=== PATIENT | female | born 1980 | race Caucasian/White ===

== ENCOUNTER 2020-01-21 20:37 | Observation (INO) | payer BC, SELFPAY ==
[2020-01-21] VITALS (12 sets, daily range): BP systolic 99–161; BP diastolic 60–97; PULSE 80–119; RESP 12–26; TEMP 36.7; O2SAT 95–100
--- NOTE | 2020-01-21 20:56 | ED.OVERDOSE ---
HPI - Overdose General Chief Complaint: Psychiatric Symptoms Stated Complaint: unknown Time Seen by Provider: 01/21/20 20:53 History of Present Illness HPI Narrative: 39 yo female brought in from home after and intentional overdose. She reports that she took an unknown numbner of 100 mg sertraline tablets. She says maybe 20. She says she also took 1 of something else. She says that she was just trying to go to sleep, not tryig to hurt herself. She was actively vomiting at the time of my evaluation. She denies any other symptoms. Her reportedly said that she took 64 tablets. Related Data Home Medications Medication Instructions Recorded Confirmed aripiprazole 10 mg HS 01/21/20 01/22/20 sertraline 100 mg BID 01/21/20 01/22/20 Allergies Allergy/AdvReac Type Severity Reaction Status Date / Time No Known Allergies Allergy Verified 01/21/20 21:42 Review of Systems Review of Systems: All systems reviewed & are unremarkable except as noted in HPI and below Constitutional: Constitutional: Denies chills and Denies fever(s) Cardiovascular: Cardiovascular: Denies chest pain Respiratory: Respiratory: Denies dyspnea Gastrointestinal: Gastrointestinal: Denies abdominal pain, Reports nausea and Reports vomiting Musculoskeletal: Musculoskeletal: Denies back pain Neurologic: Denies dizziness and Denies weakness Psychiatric: Psychiatric: Reports depression PMFSH Past Medical History Medical History Anxiety and depression Family History Family History Mother Hypertension Social History Social History Smoking status: Never smoker Alcohol intake: current Drinks per week: 8 Substance use: never Substance use type: does not use Gender identity (if verbalized by the patient): Female Spiritual care concerns: No Exam Const: General: no acute distress and alert Nutritional Appearance: well nourished Orientation/consciousness: patient oriented x3 HENMT: Head: normal to inspection Course Vital Signs Vital signs: Vital Signs Temperature 36.7 C 01/21/20 20:47 Pulse Rate 119 H 01/21/20 20:47 Respiratory Rate 20 01/21/20 20:47 Blood Pressure 161/97 H 01/21/20 20:47 Pulse Oximetry 100 01/21/20 20:47 Temperature 37.1 C 01/22/20 00:15 Pulse Rate 78 01/22/20 02:00 Respiratory Rate 18 01/22/20 00:15 Blood Pressure 122/76 01/22/20 00:15 Pulse Oximetry 97 01/22/20 00:15 MDM - Overdose MDM Narrative Medical decision making narrative: Normal QRS, normal rate, no psychomotor agitation. I will admit for observation and medical clearance Medical Records Attestation: I reviewed the patient's medical records. Lab Data Attestation: I reviewed the patient's lab results. Result diagrams: 01/21/20 21:08 01/21/20 21:08 Labs: Lab Results 01/21/20 01/21/20 01/21/20 Range/Units 21:08 21:08 21:08 WBC 6.1 (4.5-10.0) K/mm3 RBC 4.75 (4.2-5.4) M/mm3 Hgb 14.6 (12.0-15.0) g/dL Hct 43.4 (37.0-47.0) % MCV 91.4 (80-100) fl MCH 30.7 (26-34) pg MCHC 33.6 (32-36) g/dl RDW 12.7 (11.5-14.5) % Plt Count 277 (150-375) k/mm3 MPV 9.5 (7.4-10.4) fl Immature Gran % (Auto) 0.2 (0-0.5) % Neut % (Auto) 43.2 L (45.5-73.1) % Lymph % (Auto) 46.8 H (18.3-44.2) % [place] % (Auto) 7.7 (2.6-8.5) % Eos % (Auto) 1.8 (0-4.4) % Baso % (Auto) 0.3 (0.2-1.2) % Lymph # (Auto) 2.84 (0.9-3.2) K/mm3 Grimes # (Auto) 0.5 (0.1-0.6) K/mm3 Eos # (Auto) 0.1 (0-0.3) K/mm3 Baso # (Auto) 0.0 (0.0-0.1) K/mm3 Abs Immat Gran (auto) 0.01 (0.00-0.031) K/mm3 Absolute Neuts (auto) 2.6 (1.3-6.7) K/mm3 Absolute Nucleated RBC 0.0 (0.0-0.012) K/mm3 Nucleated RBC % 0.0 (0.0-0.2) % Sodium 147 H (137-145) mmol/L Ded[place]
--- NOTE | 2020-01-21 21:03 | ECG_ITS ---
Measurements Intervals [place] Rate: 96 P: 66 [place]: 145 QRS: 78 QRSD: 98 T: 42 QT: 332 QTc: 420 Interpretive Statements SINUS RHYTHM NONSPECIFIC ST & T-WAVE ABNORMALITY- ANTEROLAT/INF LEADS BORDERLINE ECG Electronically Signed On 01-22-2020 6:55:28 CDT by Cheko Grimm D.O.
--- NOTE | 2020-01-21 21:03 | PC.NURSE ---
POISON CONTROL NOTIFIED AT 2055. PT TOOK 64 100MG TABS SERTRALINE AND AN UNKNOWN AMOUNT OF APRIPIPRAZOLE. PER POISON CONTROL- FOR SERTRALINE 4.5-8.5 HRS-PEAK AND 26 HRS HALF LIFE. FOR APRIPRPRAZOLE 3-5 HRS PEAK AND 3-6 DAYS HALF LIFE. NEED TO WATCH FOR MANGLE TENDER DEPRESSION, SEIZURES, WIDE QRS, LONG QT, HTN , HYPOTENSION, SEROTONIN SNYDROM FROM SERTRALINE. NEED TO WATCH FOR DYSTONIC REACTION, Neuroleptic malignant syndrome. THEY ARE FAXING INFORMATION TO US.
[2020-01-21 21:13] LABS: Basophils Percent Auto 0.3 % (0.2-1.2); Eosinophils Absolute Auto 0.1 K/mm3 (0-0.3); Eosinophils Percent Auto 1.8 % (0-4.4); Hematocrit 43.4 % (37.0-47.0); Hemoglobin 14.6 g/dL (12.0-15.0); Immature Granulocyte Absolute 0.01 K/mm3 (0.00-0.031); Immature Granulocyte Percent A 0.2 % (0-0.5); Lymphocytes Absolute Auto 2.84 K/mm3 (0.9-3.2); Lymphocytes Percent Auto 46.8 % (18.3-44.2); Mean Corpuscular HGB Conc 33.6 g/dl (32-36); Mean Corpuscular Hemoglobin 30.7 pg (26-34); Mean Corpuscular Volume 91.4 fl (80-100); Mean Platelet Volume 9.5 fl (7.4-10.4); Monocytes Absolute Auto 0.5 K/mm3 (0.1-0.6); Monocytes Percent Auto 7.7 % (2.6-8.5); Neutrophils Absolute Auto 2.6 K/mm3 (1.3-6.7); Neutrophils Percent Auto 43.2 % (45.5-73.1); Platelet Count Result 277 k/mm3 (150-375); Red Blood Count 4.75 M/mm3 (4.2-5.4); Red Cell Distribution Width 12.7 % (11.5-14.5); White Blood Count 6.1 K/mm3 (4.5-10.0)
[2020-01-21 21:28] LABS: Add Urine Microscopic? NO; Appearance Urine Clear (Clear); Bilirubin Urine Negative (Negative); Blood Urine Negative (Negative); Color Urine Colorless (Yellow); Glucose Urine UA Negative (Negative); Ketones Urine Negative (Negative); Leukocyte Esterase Ur Negative LEU/UL (Negative); Nitrate Urine Negative (Negative); Protein Urine Negative (Negative); Urobilinogen Urine Negative mg/dL (<2.0)
[2020-01-21 21:30] LABS: Acetaminophen < 10 ug/mL (10-30); Ethanol 237 mg/dL (<10); Salicylate < 1.0 mg/dL (2-20)
[2020-01-21 21:30] LABS: Specific Grav Ur 1.004 (1.001-1.035)
[2020-01-21 21:31] LABS: Alanine Aminotransferase 19 U/L (4-35); Albumin Level 5.1 g/dL (3.5-5.1); Alkaline Phosphatase 42 U/L (38-126); Anion Gap 17 mmol/L (8-16); Aspartate Amino Transferase 30 U/L (14-36); Bilirubin,Total 0.3 mg/dL (0.2-1.3); Blood Urea Nitrogen 11 mg/dL (7-17); Calcium 9.7 mg/dL (8.4-10.2); Carbon Dioxide 23 mmol/L (22-30); Chloride 107 mmol/L (98-107); Estimated Glomerular Filt Rate > 60; Glucose 96 mg/dL (65-105); Magnesium 2.2 mg/dL (1.6-2.3); Potassium 4.2 mmol/L (3.4-5.0); Sodium 147 mmol/L (137-145)
--- NOTE | 2020-01-21 21:36 | PC.NURSE ---
RAJESH Arthur spoke w/ Pt.'s and per he informed the Pt. She needed to get more help. The states the Pt. then went upstairs and told her to leave him alone. The then reported the Pt. came back downstairs to tell him she took pills and that she needed to go to the hospital. The Pt. then instructed her to bring the pill bottles with him to the hospital. The Pt.'s reported that he was unaware of any previous suicide attempts. also reports that Pt. has had suicidal thoughts in the past, but never any suicide attempts. Pt. has a hx of bipolar I, Depression, Alcoholism.
[2020-01-21 21:42] LABS: Amphetamine Screen Urine Negative (Negative); Barbiturate Screen Urine Negative (Negative); Benzodiazepines Screen Urine Negative (Negative); Cannabinoid Screen Urine Negative (Negative); Cocaine Screen Urine Negative (Negative); Methadone Screen Urine Negative (Negative); Opiate Screen Urine Negative (Negative); Phencyclidine Screen Urine Negative (Negative)
--- NOTE | 2020-01-21 22:49 | PC.NURSE ---
Spoke w/ poison control for updates. instructed to administer benzos for sz and dystonia. monitor for widening QRS
--- NOTE | 2020-01-21 23:29 | PM.IMHP ---
H&P: HPI History of Present Illness Date/Time: 01/21/20 23:29 Chief complaint: overdose Narrative: This is a pleasan 39 year old female with known depression who presented to the hospital for intentional overdose of questionable intent. The patient admits to ingesting greater than 10 tabs of 100 mg sertraline. She isn't exactly sure how many pills she took but ER provider reports to me that she likely took about 60 tabs when they checked her pill bottle. Her reported she took 64 tabs. She also admits to taking Abilify to the ER provider. It is unknown how much Abilify she took. Tonight she denies any nausea and vomiting although ER provider reported to me that the patient was actively vomiting when he saw her. She denies any suicidal ideation or homicidal ideation and denies any previous overdose. She denies any fever, chills, cough, shortness of breath, headache, nausea, abdominal pain, dysuria, diarrhea, rectal bleeding, hallucinations, or focal neurological symptoms. Review of Systems Review of Systems: All systems reviewed & are unremarkable except as noted in HPI and below PMFSH Past Medical History Medical History Anxiety and depression Family History Family History Mother Hypertension Social History Social History Smoking status: Never smoker Alcohol intake: current Drinks per week: 8 Substance use: never Substance use type: does not use Gender identity (if verbalized by the patient): Female Spiritual care concerns: No Comments No previous surgeries. Meds Home Medications and Allergies Home Medications Medication Instructions Recorded Confirmed Type aripiprazole 10 mg HS 01/21/20 01/22/20 History sertraline 100 mg BID 01/21/20 01/22/20 History Allergies Allergy/AdvReac Type Severity Reaction Status Date / Time No Known Allergies Allergy Verified 01/21/20 21:42 Vital Signs Vital Signs - 24 hr 01/21/20 20:47 01/21/20 21:50 01/21/20 22:00 Temperature 36.7 C Pulse Rate 119 H 97 86 Respiratory Rate 20 26 H 20 Blood Pressure 161/97 H Pulse Oximetry 100 01/21/20 22:03 01/21/20 22:28 01/21/20 22:30 Temperature Pulse Rate 97 89 90 Respiratory Rate 22 H 19 17 Blood Pressure 114/72 Pulse Oximetry 100 100 01/21/20 22:45 01/21/20 23:00 01/21/20 23:01 Temperature Pulse Rate 87 81 85 Respiratory Rate 19 16 17 Blood Pressure 99/60 L Pulse Oximetry 99 95 97 01/21/20 23:15 Temperature Pulse Rate 88 Respiratory Rate 15 Blood Pressure Pulse Oximetry 99 Exam Const: General: cooperative, alert and awake Nutritional Appearance: well nourished Orientation/consciousness: patient oriented x3 HENMT: Head: normal to inspection General nose exam: Normal external nose present Face and sinus: normal facial exam Mouth: Yes Normal oral and palatal mucosa present and Yes oropharynx normal Eyes: Pupils: Equal, round and reactive pupils present EOM: EOMs intact bilaterally Neck: Neck: supple and no JVD Thyroid: thyroid normal Lymphatic: lymphadenopathy not noted Resp: Effort & Inspection: normal respiratory effort Auscultation: clear to auscultation bilaterally Cardio: Rate: regular rate Rhythm: regular rhythm Heart sounds: no murmurs GI: Inspection: normal to inspection Auscultation: normal bowel sounds Skin: General skin exam: normal color and no rashes or lesions noted Neuro: General: patient oriented x3 Cranial nerves: Yes CN's II-XII intact bilaterally and Yes Equal, round and reactive pupils present Speech: normal speech Motor exam (neuro): 5/5 motor strength present throughout Sensory Exam: normal sensation Extrem: General: normal to inspection and no edema Psych: Mental Status: mental status grossly normal Affect: normal affect H&P: Results Labs Lab
[2020-01-22] VITALS (14 sets, daily range): BP systolic 109–131; BP diastolic 71–91; PULSE 78–93; RESP 18–99; TEMP 36.6–37.1; O2SAT 18–97; BMI 26.4
--- NOTE | 2020-01-22 00:36 | ADMGEN ---
This patient, Chrystal Garcia, was admitted to Intensive Care Unit-8 on 01/22/20 at 0010. Patient/family oriented to hospital policies and general routines including ID bracelet, bed and alarms, visiting hours, pain management, procedures, bathroom and other care routines, personal items, smoking policy, room service/diet, and visiting hours. Valuables list has been completed. Information on how to activate the Rapid Response Team has been discussed. Patient/Family are encouraged to report perceived risks to care and to ask questions if they do not understand what they are told or what they should do.
[2020-01-22] MEDS: LACTATED RINGERS 1,000 ML 125 ML IV CONT ×2 (00:40→08:46)
--- NOTE | 2020-01-22 01:53 | ECG_ITS ---
Measurements Intervals [place] Rate: 77 P: 63 [place]: 147 QRS: 82 QRSD: 88 T: 38 QT: 363 QTc: 413 Interpretive Statements SINUS RHYTHM BORDERLINE ST ABNORMALITY- INFERIOR LEADS BASELINE ARTIFACT- II, III, AVR, AVL, AVF BORDERLINE ECG Electronically Signed On 01-22-2020 12:28:14 CDT by Cheko Grimm D.O.
[2020-01-22 07:03] LABS: Glucose Point of Care 82 (65-105)
--- NOTE | 2020-01-22 07:53 | ECG_ITS ---
Measurements Intervals [place] Rate: 76 P: 55 [place]: 149 QRS: 81 QRSD: 89 T: 40 QT: 372 QTc: 419 Interpretive Statements SINUS RHYTHM NORMAL ECG Electronically Signed On 01-22-2020 12:28:20 CDT by Cheko Grimm D.O.
[2020-01-22 09:22] LABS: Anion Gap 6 mmol/L (8-16); Blood Urea Nitrogen 11 mg/dL (7-17); Calcium 8.8 mg/dL (8.4-10.2); Carbon Dioxide 29 mmol/L (22-30); Chloride 104 mmol/L (98-107); Estimated CRCL calculation 103 ml/min; Estimated Glomerular Filt Rate > 60; Ethanol < 10 mg/dL (<10); Glucose 85 mg/dL (65-105); Sodium 139 mmol/L (137-145)
[2020-01-22 09:23] LABS: Magnesium 1.7 mg/dL (1.6-2.3); Phosphorus 3.3 mg/dL (2.5-4.5)
[2020-01-22] MEDS: ACETAMINOPHEN 325 MG TABLET 650 MG PO (09:25)
[2020-01-22] MEDS: THIAMINE HCL 200 MG/2 ML VIAL 100 MG IV PUSH (09:28)
--- NOTE | 2020-01-22 09:53 | ECG_ITS ---
Measurements Intervals [place] Rate: 83 P: 61 [place]: 143 QRS: 84 QRSD: 93 T: 37 QT: 353 QTc: 416 Interpretive Statements SINUS RHYTHM BORDERLINE ST ABNORMALITY- INFERIOR LEADS BORDERLINE ECG Electronically Signed On 01-22-2020 11:44:23 CDT by Cheko Grimm D.O.
--- NOTE | 2020-01-22 11:46 | PC.NURSE ---
Spoke with Caitlyn MENA from poison control and patient has been cleared from their standpoint.
--- NOTE | 2020-01-22 11:53 | ECG_ITS ---
SINUS RHYTHM BORDERLINE ST-T WAVE ABNORMALITY- ANTEROLAT/INF LEADS BORDERLINE ECG Electronically Signed On 01-22-2020 13:03:35 CDT by Cheko Grimm D.O. COMPARED TO ECG 01/22/2020 10:02:23 NO SIGNIFICANT CHANGES MTDD
--- NOTE | 2020-01-22 14:06 | PM.IMPN ---
Progress Note: A&P Assessment and Plan (1) Intentional overdose of selective serotonin reuptake inhibitor (SSRI): Code(s): T43.222A - Poisoning by selective serotonin reuptake inhibitors, intentional self-harm, initial encounter Status: Acute Assessment and Plan: no adverse effects. EKG remains and change with no prolongation of QT interval and no rhythm is. patient is medically cleared for transfer to inpatient psych facility. Vital signs are all stable, electrolytes are normal, and alcohol level nondetectable now with normal EKG and no arrhythmias as stated (2) Alcohol intoxication: Qualifiers: Complication of substance-induced condition: with unspecified complication Qualified Code(s): F10.929 - Alcohol use, unspecified with intoxication, unspecified Code(s): F10.929 - Alcohol use, unspecified with intoxication, unspecified Status: Acute Assessment and Plan: The patient admits to drinking every other day. Repeat ETOH level today non detectable. LFTs normal so no long-term physical affects from alcohol to date (3) Suicidal ideation: Code(s): R45.851 - Suicidal ideations Status: Acute Assessment and Plan: patient denies any suicidal thoughts or plans. Gave the same history to crisis intervention but after crisis discuss the case with her , she has been having white mood swings with bouts of severe depression and trouble with the alcohol. She will be referred for inpatient psych evaluation (4) Anxiety and depression: Code(s): F41.9 - Anxiety disorder, unspecified; F32.9 - Major depressive disorder, single episode, unspecified Status: Chronic Assessment and Plan: Hold medications and resume with psychiatrist at inpatient facility Subjective Date/time seen: 01/22/20 14:06 Interval history: date of visit 01/21. 39-year-old white female with history of some alcohol abuse and depression who after drinking yesterday evening consumed unknown quantity sertraline and which she says was not attempt to get some sleep. She denies any suicidal attempts or ideations. Today she feels fine other than mild headache. Exam Narrative: Exam Narrative: Blood pressure 112/70 pulse is 92 saturating 96% on room air afebrile pupil equal reactive light sclera anicteric lungs clear CV regular rate rhythm no murmurs abdomen soft nontender extremities without edema good distal pulses neuro alert pleasant cooperative no focal deficits, oriented times 4, psych affect slightly blunted but pleasant and cooperative Objective Data Vital Signs Vital Signs: Vital Signs - 24 hr 01/21/20 20:47 01/21/20 21:00 01/21/20 21:50 Temperature 36.7 C Pulse Rate 119 H 97 Pulse Rate [Bilateral Pedal (Dorsalis Pedis)] Respiratory Rate 20 12 26 H Blood Pressure 161/97 H Pulse Oximetry 100 01/21/20 22:00 01/21/20 22:03 01/21/20 22:28 Temperature Pulse Rate 86 97 89 Pulse Rate [Bilateral Pedal (Dorsalis Pedis)] Respiratory Rate 20 22 H 19 Blood Pressure 114/72 Pulse Oximetry 100 01/21/20 22:30 01/21/20 22:45 01/21/20 23:00 Temperature Pulse Rate 90 87 81 Pulse Rate [Bilateral Pedal (Dorsalis Pedis)] Respiratory Rate 17 19 16 Blood Pressure Pulse Oximetry 100 99 95 01/21/20 23:01 01/21/20 23:15 01/21/20 23:55 Temperature Pulse Rate 85 88 80 Pulse Rate [Bilateral Pedal (Dorsalis Pedis)] Respiratory Rate 17 15 15 Blood Pressure 99/60 L 99/60 L Pulse Oximetry 97 99 95 01/22/20 00:10 01/22/20 00:15 01/22/20 00:30 Temperature 37.1 C Pulse Rate 88 78 81 Pulse Rate [Bilateral Pedal (Dorsalis Pedis)] Respiratory Rate 18 Blood Pressure 122/76 Pulse Oximetry 97 01/22/20 02:00 01/22/20 04:00 01/22/20 06:00 Temperature Pulse Rate 78 78 82 Pulse Rate [Bilateral Pedal (Dorsalis Pedis)] 87 Respiratory Rate Blood Pressure Pulse Oximetry 01/22/20 06:02 01/22/20 08
[2020-01-23 13:14] LABS: SARS-CoV-2 RNA PCR Negative
--- NOTE | 2020-01-24 10:33 | PM.TDS ---
Transfer Discharge Sum: Prov Provider Date of admission: 01/21/20 23:01 Primary care physician: Sander Whatley MD Admitting clinician: Franklin Doshi MD Consults: 01/22/20 Care Coordination Consult Routine Comment: Reason for Consult:: Crisis Intervention Care Coordination Consult Routine Comment: Reason for Consult:: Crisis Intervention DS: Admitting Diagnosis Admitting Diagnosis Admitting Diagnosis: overdose DS: Discharge Diagnosis Discharge Diagnosis (1) Intentional overdose of selective serotonin reuptake inhibitor (SSRI): Code(s): T43.222A - Poisoning by selective serotonin reuptake inhibitors, intentional self-harm, initial encounter Status: Acute Assessment and Plan: no adverse effects. EKG remains and change with no prolongation of QT interval and no arrhythmias. patient is medically cleared for transfer to inpatient psych facility. Vital signs are all stable, electrolytes are normal, and alcohol level nondetectable now with normal EKG and no arrhythmias as stated (2) Alcohol intoxication: Qualifiers: Complication of substance-induced condition: with unspecified complication Qualified Code(s): F10.929 - Alcohol use, unspecified with intoxication, unspecified Code(s): F10.929 - Alcohol use, unspecified with intoxication, unspecified Status: Acute Assessment and Plan: The patient admits to drinking every other day. Repeat ETOH level day of discharge was not detectable. LFTs normal so no long-term physical affects from alcohol to date (3) Suicidal ideation: Code(s): R45.851 - Suicidal ideations Status: Acute Assessment and Plan: patient denies any suicidal thoughts or plans. Gave the same history to crisis intervention but after crisis discuss the case with her , she has been having wide mood swings with bouts of severe depression and trouble with the alcohol. She will be referred for inpatient psych evaluation (4) Anxiety and depression: Code(s): F41.9 - Anxiety disorder, unspecified; F32.9 - Major depressive disorder, single episode, unspecified Status: Chronic Assessment and Plan: Hold medications and resume with psychiatrist at inpatient facility Transfer Discharge Sum: Med Medications Active and Home Medications: Home Medications aripiprazole 10 mg HS 01/21/20 [History Confirmed 01/22/20] sertraline 100 mg BID 01/21/20 [History Confirmed 01/22/20] Transfer Discharge Sum: Hosp Hospital Course Hospital course: Chrystal Garcia is a 39 year old female admitted to the hospital after alcohol consumption and unknown quantity of Zoloft tablets. she had emesis in the ER. She was monitored for over 24 hours for any signs of arrhythmia or QT prolongation and there were none. repeat alcohol level was nondetectable. she was seen by crisis intervention and after discussion with family it was decided that her best interest would be inpatient psych for further treatment and evaluation. she was medically stable and transferred to inpatient psych on the evening of the 12th Time Spent with Patient Time attestation: Total time spent providing and/or coordinating transfer services:35 minutes Exam Narrative: Exam Narrative: Condition on discharge blood pressure 132/90 pulse is 92 afebrile lungs clear CV regular rate rhythm abdomen soft nontender extremities without edema neuro alert cooperative no focal deficits and oriented x4 she was taking a normal diet up without assistance and stable to be transferred to inpatient psych DS: Data Data Completed and Pending Labs on day of discharge: Labs from last 24 hours 01/22/20 16:49 SARS-CoV-2 RNA (RT-PCR) Negative
== END 2020-01-22 19:50 ==
LOC: ANHED 22:37 → ANHICU 01-22 00:09
PROVIDERS: Admitting Provider Family Medicine; Emergency Provider Emergency Medicine; PCP Family Medicine; Visit Provider Internal Medicine
DX: T43.222A Poisoning by selective serotonin reuptake inhibitors, intentional self-harm, initial encounter (principal); F41.8 Other specified anxiety disorders; F10.929 Alcohol use, unspecified with intoxication, unspecified; R45.851 Suicidal ideations; Y90.7 Blood alcohol level of 200-239 mg/100 ml
CPT/HCPCS: 36415; 80048; 80053; 80307; 81003; 81025; 83735; 84100; 84443; 85025; 87635; 93005; 96361; 96374; 99285; A9270; C9803; G0378; J3411; J7120; U0003

== ENCOUNTER 2021-03-07 11:01 | Emergency (ER) | payer OTHER, BC, SELFPAY ==
--- NOTE | ~2021-03-07 | CT_ITS ---
EXAMINATION: CT facial bones wo con DATE: 03/07/2021 12:25 INDICATION: Facial pain and headache TECHNIQUE: Computed tomography (CT) of the facial bones and maxillofacial region was performed withou t intravenous contrast. The dose-length product (DLP) was 386.55 mGy-cm. Automated exposure control a nd iterative reconstruction technique were employed. COMPARISON: None. FINDINGS: No facial fracture is identified. Facial soft tissues are unremarkable. The globes and orbi ts are intact. The right maxillary sinus is hypoplastic and completely opacified. There is rightward deviation of the nasal septum. The right ostiomeatal complex is occluded. IMPRESSION: 1. No acute abnormality of the facial bones. 2. Right maxillary sinus disease. Reviewed, dictated and finalized at location A. CH TREATING ASSISTANT
--- NOTE | ~2021-03-07 | CT_ITS ---
EXAMINATION: CT brain wo con INDICATION: Headache COMPARISON: None TECHNIQUE: Standard unenhanced head CT. The dose-length product (DLP) was 605.33 mGy-cm. The mA was a djusted according to patient size. Iterative reconstruction technique was employed. FINDINGS: There is no intracranial hemorrhage, acute infarction, or abnormal mass lesion. The ventric les are normal. There is no abnormal mass effect or midline shift. The meza-white matter differentiat ion is normal. The basal cisterns are patent. The orbits are normal. The right maxillary sinus is hyp oplastic and completely opacified. IMPRESSION: 1. No acute intracranial abnormality. Reviewed, dictated and finalized at location A. HER STRIP MECHANIC
[2021-03-07 11:21] VITALS: BP 136/78; PULSE 90; RESP 18; TEMP 36.1; O2SAT 100
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
== END 2021-03-07 12:55 | disposition home or self-care (01) ==
PROVIDERS: Emergency Provider Emergency Medicine; PCP Family Medicine
DX: S06.0X0A Concussion without loss of consciousness, initial encounter (principal); S13.4XXA Sprain of ligaments of cervical spine, initial encounter; V44.5XXA Car driver injured in collision with heavy transport vehicle or bus in traffic accident, initial encounter
CPT/HCPCS: 70450; 70486; 99284

== ENCOUNTER 2022-01-01 17:39 | Emergency (ER) | payer BC, SELFPAY ==
[2022-01-01 17:46] VITALS: BP 129/85; PULSE 116; RESP 16; TEMP 36.3; O2SAT 100
--- NOTE | 2022-01-01 18:23 | PC.NURSE ---
patient left without being seen stating I don't want to wait anymore .
== END 2022-01-01 19:38 | disposition left against medical advice (07) ==
PROVIDERS: PCP Family Medicine
DX: K14.6 Glossodynia (principal)
CPT/HCPCS: 99199

== ENCOUNTER 2022-03-06 14:16 | Outpatient (CLI) | payer BC, SELFPAY ==
--- NOTE | ~2022-03-06 | MM_ITS ---
EXAMINATION: MM scrn shania implant BI w anusha HISTORY: Screening mammogram TECHNIQUE: Craniocaudal and mediolateral oblique 3-D tomosynthesis images with implant displacement a nd synthetic 2-D images were generated. Craniocaudal and mediolateral oblique views of the breasts wi thout implant displacement were obtained using full field digital mammography. CAD analysis was submi tted and interpreted. COMPARISON: No prior mammogram is available for comparison at this institution. BREAST PARENCHYMAL COMPOSITION: There are scattered areas of fibroglandular density. FINDINGS: RIGHT BREAST: There is no evidence of suspicious mass, calcification, or architectural distortion to suggest malignancy. LEFT BREAST: An asymmetry is present in the anterior third of inner breast 4 cm from the nipple on th e implant displaced craniocaudal view. IMPRESSION: 1. Left breast asymmetry. 2. Additional mammographic views and possible breast ultrasound are recommended. BI-RADS Category 0: Incomplete: Needs additional imaging evaluation. Reviewed, dictated and finalized at location A. T DESIGNER IMPRESSION: 1. Left breast asymmetry. 2. Additional mammographic views and possible breast ultrasound are recommended . BI-RADS Category 0: Incomplete: Needs additional imaging evaluation.
== END 2022-03-06 14:17 | disposition home or self-care (01) ==
PROVIDERS: PCP Family Medicine; Visit Provider Physician Assistant Medical
DX: Z12.31 Encounter for screening mammogram for malignant neoplasm of breast (principal); R92.8 Other abnormal and inconclusive findings on diagnostic imaging of breast
CPT/HCPCS: 77063; 77067

== ENCOUNTER 2022-03-25 12:59 | Outpatient (CLI) | payer BC, SELFPAY ==
--- NOTE | ~2022-03-25 | MMUS_ITS ---
EXAMINATION: MM diag shania implant LT w anusha, US breast LT limited HISTORY: Follow-up left breast asymmetry TECHNIQUE: Additional 3-D tomosynthesis images of the left breast were performed and synthetic 2-D im ages were generated. CAD analysis was submitted and interpreted. High resolution left breast ultrasou nd was performed. COMPARISON: 03/06/2022 BREAST PARENCHYMAL COMPOSITION: BREAST PARENCHYMAL COMPOSITION: There are scattered areas of fibroglandular density. FINDINGS: MAMMOGRAPHIC FINDINGS: There are no suspicious masses, calcifications or architectural distortion in the left breast to sugg est malignancy. No focal left breast asymmetry compresses with spot views, compatible with superimpos ed fibroglandular content. ULTRASOUND: Limited left breast ultrasound: Normal heterogeneous echotexture without focal cyst or solid or cysti c masses. IMPRESSION: 1. No evidence for malignancy in the left breast. 2. Routine yearly screening mammogram and regular clinical breast examination are recommended. BI-RADS Category 1: Negative Reviewed, dictated and finalized at location B. LY SUPPORT SPECIALIST IMPRESSION: 1. No evidence for malignancy in the left breast. 2. Routine yearly screening mammogram and regular clinical breast examination a re recommended. BI-RADS Category 1: Negative
== END 2022-03-25 13:00 | disposition home or self-care (01) ==
LOC: ANHIMG 13:00
PROVIDERS: PCP Family Medicine; Visit Provider Nurse Practitioner Family
DX: R92.8 Other abnormal and inconclusive findings on diagnostic imaging of breast (principal)
CPT/HCPCS: 76642; 77061; 77065; G0279

== ENCOUNTER 2025-03-14 07:59 | Outpatient (CLI) | payer OTHER, SELFPAY ==
--- NOTE | ~2025-03-14 | MM_ITS ---
EXAMINATION: MM diagnostic mammogram implant left w anusha HISTORY: Additional imaging TECHNIQUE: Craniocaudal and mediolateral oblique 3-D tomosynthesis images were obtained and synthetic 2-D images were generated. CAD analysis was submitted and interpreted. COMPARISON: December 14 BREAST PARENCHYMAL COMPOSITION: Dense: The breasts are heterogeneously dense FINDINGS: There is a retropectoral silicone implant. The presence of an implant limits the sensitivity of mammography. No suspicious masses are seen. There are 2 adjacent groups of calcifications in the 12-1 o'clock left breast in the posterior depth. One is slightly medial, posterior, and superior to the other. It contains several slightly coarser calcifications. This spans a distance of approximately 5 mm. The other group is fine and granular. They span a distance of approximately 3 mm. These very likely represent the same process. They are by only a few millimeters. No unexplained architectural distortion is seen. There are no skin or nipple abnormalities identified. There is no adenopathy seen on the images submitted. IMPRESSION: Indeterminate Calcifications as described. These could probably be sampled at the same time with one skin kameron. Stereotactic/tomographic guided core biopsy is recommended. BI-RADS 4 - Suspicious for malignancy. Tissue diagnosis is recommended. Reviewed, dictated and finalized at location B. ORK DESKTOP SUPPORT SPECIALIST IMPRESSION: Indeterminate Calcifications as described. These could probably be sampled at t he same time with one skin kameron. Stereotactic/tomographic guided core biopsy is recommended. BI-RADS 4 - Suspicious for malignancy. Tissue diagnosis is recommended.
== END 2025-03-14 08:00 | disposition home or self-care (01) ==
LOC: MICIMG 07:59
PROVIDERS: PCP Family Medicine; Visit Provider Nurse Practitioner
DX: R92.8 Other abnormal and inconclusive findings on diagnostic imaging of breast (principal)
CPT/HCPCS: 77061; 77065; G0279